=== PATIENT | male | born 1955 | race Caucasian/White ===

== ENCOUNTER 2018-04-08 17:02 | Emergency (ER) | payer OTHER ==
[2018-04-08 17:20] VITALS: TEMP 98.3; BMI 20.5
--- NOTE | 2018-04-08 17:20 | PDOC ---
Rapid Medical Evaluation Chief Complaint: Blood Pressure Problem Medical Evaluation: Allergies Allergy/AdvReac Type Severity Reaction Status Date / Time ampicillin Allergy Verified 04/08/18 17:16 04/08/18 17:18 I have performed a brief in-person evaluation of this patient. The patient presents with a chief complaint of: CARDONA yesterday that resolved today. Elevated BP at home per family. Pt denies pmhx, does smoke cigarettes. Visiting [place] from Pertinent physical exam findings:BP 173/103, stable otherwise and well corey in NAD I have ordered the following:labs The patient will proceed to the ED for further evaluation. 04/08/18 17:20 Discharge Disposition - Diagnosis Headache Qualifiers: Headache type: unspecified Headache chronicity pattern: acute headache Intractability: not intractable Qualified Code(s): R51 - Headache - Referrals - Patient Instructions - Post Discharge Activity
[2018-04-08] MEDS ORDERED: amLODIPine BESYLATE 5 MG TABLET (FP) PO ONE (17:38)
[2018-04-08] MEDS ORDERED: HYDROCHLOROTHIAZIDE 25 MG TABLET (FP) PO ONE (17:38)
[2018-04-08] MEDS ORDERED: amLODIPine BESYLATE 5 MG TABLET (FP) ONE (17:45)
[2018-04-08] MEDS ORDERED: HYDROCHLOROTHIAZIDE 25 MG TABLET (FP) ONE (17:45)
[2018-04-08 18:04] LABS: BASO % 0.6 % (0-2.0); EOS % 1.4 % (0-4.5); HEMATOCRIT 45.3 % (35.4-49); HEMOGLOBIN 15.5 GM/dL (11.7-16.9); LYMPH % 37.3 % (8-40); MCH 31.1 pg (25.7-33.7); MCHC 34.2 g/dl (32.0-35.9); MEAN CELL VOLUME 91.2 fl (80-96); MEAN PLT VOLUME 10.2 fl (7.5-11.1); MONO % 8.9 % (3.8-10.2); NEUT % 51.8 % (42.8-82.8); PLATELET COUNT 248 K/MM3 (134-434); RBC 4.97 M/mm3 (4.00-5.60); RDW 14.1 % (11.9-15.9); WHITE BLOOD COUNT 8.6 K/mm3 (4.0-10.0)
[2018-04-08 18:30] LABS: ANION GAP 5 (8-16); BLOOD UREA NITROGEN 13 mg/dL (7-18); CALCIUM 9.1 mg/dL (8.5-10.1); CHLORIDE 105 mmol/L (98-107); CO2 30 mmol/L (21-32); CREATININE 0.8 mg/dL (0.7-1.3); GLUCOSE,RANDOM 88 mg/dL (74-106); SGPT/ALT 23 U/L (12-78); SODIUM 140 mmol/L (136-145)
[2018-04-08 18:32] LABS: ALK PHOS 96 U/L (45-117); BILIRUBIN,TOTAL 0.5 mg/dL (0.2-1.0); TOT PROT 7.7 g/dl (6.4-8.2)
[2018-04-08 18:33] LABS: POTASSIUM 4.8 mmol/L (3.5-5.1); SGOT/AST 22 U/L (15-37)
[2018-04-08 19:26] LABS: URINE APPEARANCE CLEAR; URINE BILIRUBIN NEGATIVE (<2.0 mg/dL); URINE COLOR LTYELLOW; URINE GLUCOSE (UA) NEGATIVE (NEGATIVE); URINE KETONE NEGATIVE (NEGATIVE); URINE LEUK ESTERASE NEGATIVE (NEGATIVE); URINE NITRITE NEGATIVE (NEGATIVE); URINE PROTEIN NEGATIVE (NEGATIVE)
[2018-04-08 19:29] LABS: EPI CELLS RARE /HPF (FEW)
--- NOTE | 2018-04-08 19:30 | PDOC ---
History of Present Illness <VitorBeatrice Magali - Last Filed: 04/08/18 20:56> - General History Source: Patient Exam Limitations: No Limitations - History of Present Illness Initial Comments: 04/08/18 19:42 The patient is a 62 year old male with no significant past medical history who presents to the emergency department for evaluation of headache. The patient reports he had a severe headache yesterday, but it resolved today. The patient is visiting [place] from the [place]. As per family, the patient had an elevated BP at home. The patient denies chest pain, shortness of breath, headache, and dizziness. Denies fevers, chills, nausea, vomiting, diarrhea, and constipation. Denies dysuria, frequency, urgency, and hematuria. Allergies: Ampicillin Past surgical history: Appendectomy. Social history: Current everyday smoker. No reported alcohol or drug use. <Mima Davis - Last Filed: 04/08/18 20:58> - General Chief Complaint: Blood Pressure Problem Stated Complaint: BLOOD PRESSURE Time Seen by Provider: 04/08/18 17:22 Past History - Past Medical History COPD: No - Surgical History Appendectomy: Yes - Suicide/Smoking/Psychosocial Hx Smoking History: Current every day smoker Have you smoked in the past 12 months: Yes Number of Cigarettes Smoked Daily: 3 Information on smoking cessation initiated: Yes 'Breaking Loose' booklet given: 04/08/18 Hx Alcohol Use: No Drug/Substance Use Hx: No Substance Use Type: None <Nacho Adlergunner De Los Santos - Last Filed: 04/08/18 20:56> <Mima Davis - Last Filed: 04/08/18 20:58> - Past Medical History Allergies/Adverse Reactions: Allergies Allergy/AdvReac Type Severity Reaction Status Date / Time ampicillin Allergy Verified 04/08/18 17:16 Home Medications: Ambulatory Orders Unobtainable [Unobtainable] 04/08/18 Review of Systems - Review of Systems Able to Perform ROS?: Yes Comments:: CONSTITUTIONAL: Absent: fever, chills, diaphoresis, generalized weakness, malaise, loss of appetite HEENT: Absent: rhinorrhea, nasal congestion, throat pain, throat swelling, difficulty swallowing, mouth swelling, ear pain, eye pain, visual Changes CARDIOVASCULAR: Absent: chest pain, syncope, palpitations, irregular heart rate, lightheadedness , peripheral edema RESPIRATORY: Absent: cough, shortness of breath, dyspnea with exertion, orthopnea, wheezing, stridor, hemoptysis GASTROINTESTINAL: Absent: abdominal pain, abdominal distension, nausea, vomiting, diarrhea, constipation, melena, hematochezia GENITOURINARY: Absent: dysuria, frequency, urgency, hesitancy, hematuria, flank pain, genital pain MUSCULOSKELETAL: Absent: myalgia, arthralgia, joint swelling SKIN: Absent: rash, itching, pallor HEMATOLOGIC/IMMUNOLOGIC: Absent: easy bleeding, easy bruising, lymphadenopathy, frequent infections ENDOCRINE: Absent: unexplained weight gain, unexplained weight loss, heat intolerance, cold intolerance NEUROLOGIC: Absent: headache, focal weakness or paresthesias, dizziness, unsteady gait, seizure, mental status changes, bladder or bowel incontinence PSYCHIATRIC: Absent: anxiety, depression, suicidal or homicidal ideation, hallucinations. <Mima Davis - Last Filed: 04/08/18 20:58> *Physical Exam - Vital Signs Last Vital Signs Temp Pulse Resp BP Pulse Ox 98.3 F 70 18 173/103 100 04/08/18 17:16 04/08/18 17:16 04/08/18 17:16 04/08/18 17:16 04/08/18 17:16 <Beartice Adler - Last Filed: 04/08/18 20:56> - Vital Signs Last Vital Signs Temp Pulse Resp BP Pulse Ox 98.3 F 70 18 173/103 100 04/08/18 17:16 04/08/18 17:16 04/08/18 17:16 04/08/18 17:16 04/08/18 17:16 - Physical Exam Comments: GENERAL: Well developed, well nourished. Awake and alert. No acute distress. HEENT: Normocephalic, atraumatic. PERRLA, EOMI. No conjunctival pallor. Sclera are non- icteric. Moist mucous membranes. Oropharynx is clear. NECK: Supple. Full ROM. No JVD. Carotid pulses 2+ and symmetric, without bruits. No thyromegaly. No lymphadenopathy. CARDIOVASCULAR: Regular rate and rhythm. No murmurs, rubs, or gallops. Distal pulses are 2+ and symmetric. PULMONARY: No evidence of respiratory distress. Lungs clear to auscultation bilaterally. No wheezing, rales or rhonchi. ABDOMINAL: Soft. Non-tender. Non-distended. No rebound or guarding. No organomegaly. Normoactive bowel sounds. MUSCULOSKELETAL Normal range of motion at all joints. No bony deformities or tenderness. No CVA tenderness. EXTREMITIES: No cyanosis. No clubbing. No edema. No calf tenderness. SKIN: Warm and dry. Normal capillary refill. No rashes. No jaundice. NEUROLOGICAL: Alert, awake, appropriate. Cranial nerves 2-12 intact. No deficits to light touch and temperature in face, upper extremities and lower extremities. No motor deficits in the in face, upper extremities and lower extremities. Normoreflexic in the upper and lower extremities. Normal speech. Toes are down- going bilaterally. Gait is normal without ataxia. PSYCHIATRIC: Cooperative. Good eye contact. Appropriate mood and affect. <Mima Davis - Last Filed: 04/08/18 20:58> ED Treatment Course - LABORATORY CBC & Chemistry Diagram: 04/08/18 17:55 04/08/18 17:55 - ADDITIONAL ORDERS Additional order review: Laboratory Results 04/08/18 04/08/18 18:42 17:55 Sodium 140 Potassium 4.8 Chloride 105 Carbon Dioxide 30 Anion Gap 5 L BUN 13 Creatinine 0.8 Creat Clearance w eGFR > 60 Random Glucose 88 Calcium 9.1 Total Bilirubin 0.5 AST 22 ALT 23 Alkaline Phosphatase 96 Total Protein 7.7 Albumin 4.0 Urine Color Ltyellow Urine Appearance Clear Urine pH 7.0 Ur Specific [place] 1.016 Urine Protein Negative Urine Glucose (UA) Negative Urine Ketones Negative Urine Blood 1+ H Urine Nitrite Negative Urine Bilirubin Negative Urine Urobilinogen 2.0 Ur Leukocyte Esterase Negative Urine WBC (Auto) 4 Urine RBC (Auto) 15 Ur Epithelial Cells Rare 04/08/18 17:55 RBC 4.97 MCV 91.2 MCHC 34.2 RDW 14.1 MPV 10.2 Neutrophils % 51.8 Lymphocytes % 37.3 Monocytes % 8.9 Eosinophils % 1.4 Basophils % 0.6 - Medications Given in the ED: ED Medications Discontinued Medications Generic Name Dose Route Start Last Admin Trade Name Freq PRN Reason Stop Dose Admin Amlodipine Besylate 5 mg 04/08/18 17:38 04/08/18 17:59 Norvasc - PO 04/08/18 17:39 5 mg ONCE ONE Administration Hydrochlorothiazide 25 mg 04/08/18 17:38 04/08/18 17:59 Hctz - PO 04/08/18 17:39 25 mg ONCE ONE Administration <Beatrice Adler - Last Filed: 04/08/18 20:56> - LABORATORY CBC & Chemistry Diagram: 04/08/18 17:55 04/08/18 17:55 - ADDITIONAL ORDERS Additional order review: Laboratory Results 04/08/18 04/08/18 18:42 17:55 Sodium 140 Potassium 4.8 Chloride 105 Carbon Dioxide 30 Anion Gap 5 L BUN 13 Creatinine 0.8 Creat Clearance w eGFR > 60 Random Glucose 88 Calcium 9.1 Total Bilirubin 0.5 AST 22 ALT 23 Alkaline Phosphatase 96 Total Protein 7.7 Albumin 4.0 Urine Color Ltyellow Urine Appearance Clear Urine pH 7.0 Ur Specific [place] 1.016 Urine Protein Negative Urine Glucose (UA) Negative Urine Ketones Negative Urine Blood 1+ H Urine Nitrite Negative Urine Bilirubin Negative Urine Urobilinogen 2.0 Ur Leukocyte Esterase Negative Urine WBC (Auto) 4 Urine RBC (Auto) 15 Ur Epithelial Cells Rare 04/08/18 17:55 RBC 4.97 MCV 91.2 MCHC 34.2 RDW 14.1 MPV 10.2 Neutrophils % 51.8 Lymphocytes % 37.3 Monocytes % 8.9 Eosinophils % 1.4 Basophils % 0.6 - Medications Given in the ED: ED Medications Discontinued Medications Generic Name Dose Route Start Last Admin Trade Name Freq PRN Reason Stop Dose Admin Amlodipine Besylate 5 mg 04/08/18 17:38 04/08/18 17:59 Norvasc - PO 04/08/18 17:39 5 mg ONCE ONE Administration Hydrochlorothiazide 25 mg 04/08/18 17:38 04/08/18 17:59 Hctz - PO 04/08/18 17:39 25 mg ONCE ONE Administration <Mima Davis - Last Filed: 04/08/18 20:58> *DC/Admit/Observation/Transfer <Beatrice Adler - Last Filed: 04/08/18 20:56> - Attestations Scribe Attestion: Documentation prepared by Mima Davis, acting as medical reimbursement specialist for Beatrice Adler MD. <Mima Davis - Last Filed: 04/08/18 20:58> Diagnosis at time of Disposition: Elevated blood pressure reading Headache Qualifiers: Headache type: unspecified Headache chronicity pattern: acute headache Intractability: not intractable Qualified Code(s): R51 - Headache - Discharge Dispostion Disposition: HOME Condition at time of disposition: Stable - Patient Instructions Printed Discharge Instructions: DI for High Blood Pressure Print Language: GUATEMALAN
[2018-04-08 19:55] VITALS: BP 112/84
[2018-04-08 19:56] VITALS: PULSE 63
--- NOTE | 2018-04-09 13:59 | EKG ---
Test Reason : Blood Pressure : / mmHG Vent. Rate : 063 BPM Atrial Rate : 063 BPM P-R Int : 130 ms QRS Dur : 088 ms QT Int : 396 ms P-R-T Axes : 062 069 070 degrees QTc Int : 405 ms NORMAL SINUS RHYTHM MODERATE VOLTAGE CRITERIA FOR LVH, MAY BE NORMAL VARIANT BORDERLINE ECG NO PREVIOUS ECGS AVAILABLE Confirmed by LORENA GARCIA MD ([id number]) on 04/09/2018 1:58:55 PM Referred By: Confirmed By:LORENA GARCIA MD
== END 2018-04-08 20:58 | disposition home or self-care (01) ==
LOC: JER 17:02
DX: I10 Essential (primary) hypertension (principal); R51 Headache
CPT/HCPCS: 36415; 80053; 81003; 81015; 85025; 85651; 93005; 93010; 99283-25